=== PATIENT | male | born 1930 | race Caucasian/White ===

== ENCOUNTER 2016-12-29 10:56 | Emergency (ER) | payer OTHER ==
[~2016-12-29] VITALS: Ht 175.3 cm; Wt 79.0 kg
[~2016-12-29 10:56] MED LIST: ADULT LOW DOSE81 M1 PO; ALOE VERA5000 MG PO; ATARAX10 MG PO; ATORVASTATIN CA20 MG PO; B-12500 MC1 SL; BYSTOLIC5 MG PO; COUMADIN5 MG PO; DILTIAZEM 24HR180 M1 PO; ELIQUIS2.5 MG PO; LIPITOR5 MG PO; LOVENOX80 MG/0.8 SC; NIFEDIPINE ER30 MG PO; PREDNISONE5 MG PO; PRINIVIL20 MG PO; SERTRALINE HCL50 MG PO; [UNRECOGNIZED DRUG - OTHER] PO
[2016-12-29] MEDS ORDERED: KEFLEX500 MG PO (13:43)
[2016-12-29 14:08] VITALS: BP 164/78
== END 2016-12-29 14:09 | disposition home or self-care (01) ==
LOC: EME 10:56
PROC: 3E0234Z Introduction of Serum, Toxoid and Vaccine into Muscle, Percutaneous Approach (ICD-10-PCS; principal; 2016-12-29)
DX: S02.2XXA Fracture of nasal bones, initial encounter for closed fracture (principal); S09.90XA Unspecified injury of head, initial encounter; S00.31XA Abrasion of nose, initial encounter; S50.311A Abrasion of right elbow, initial encounter; W01.0XXA Fall on same level from slipping, tripping and stumbling without subsequent striking against object, initial encounter; Y93.H2 Activity, gardening and landscaping; Y92.007 Garden or yard of unspecified non-institutional (private) residence as the place of occurrence of the external cause; Z23 Encounter for immunization; E78.5 Hyperlipidemia, unspecified; I10 Essential (primary) hypertension; Z86.718 Personal history of other venous thrombosis and embolism; Z79.01 Long term (current) use of anticoagulants; Z87.442 Personal history of urinary calculi; Z87.891 Personal history of nicotine dependence
CPT/HCPCS: 70450; 70486; 72125; 73080; 99281; 99284